=== PATIENT | female | born 1995 | race Caucasian/White ===

== ENCOUNTER 2021-07-23 17:10 | Emergency (ER) | payer OTHER ==
[~2021-07-23] VITALS: Ht 157.5 cm; Wt 116.0 kg
[2021-07-23 17:40] VITALS: BP 124/65
--- NOTE | 2021-07-23 18:16 | PHYS DOC ---
Past History Past Surgical History: Other Additional Past Surgical Histo: sinus, D&C (GREG PIÑA APRN) Alcohol Use: Rarely (GREG PIÑA APRN) General Adult EDM: Chief Complaint: COUGH HPI: HPI: Patient is a 26-year-old female who presents to the emergency department for sore throat that started on Monday. She got tested for COVID-19 on Monday and that was negative. She states that Monday night she started experiencing body aches, cough, fever, shortness of breath and chest wall pain with coughing. She states that the pain is 8 out of 10. Patient reports positive sick exposures at her work. Patient's vital signs are stable and she is in no acute distress. Patient denies any nausea, vomiting, diarrhea, loss of taste or smell. (GREG PIÑA APRN) Review of Systems: Review of Systems: Constitutional: negative unless reported in HPI Eyes: negative unless reported in HPI HENT: negative unless reported in HPI Respiratory: negative unless reported in HPI Cardiovascular: negative unless reported in HPI GI: negative unless reported in HPI : negative unless reported in HPI Musculoskeletal: negative unless reported in HPI Integument: negative unless reported in HPI Neurologic: negative unless reported in HPI Endocrine: negative unless reported in HPI Lymphatic: negative unless reported in HPI Psychiatric: negative unless reported in HPI (GREG PIÑA APRN) Allergies: Allergies: Allergies Coded Allergies Type Severity Reaction Last Updated Verified magnesium citrate Allergy Unknown Hives 07/23/21 Yes (GREG PIÑA APRN) Physical Exam: PE: Constitutional: Well developed, well nourished, no acute distress, non-toxic aj earance. [] HENT: Normocephalic, atraumatic, bilateral external ears normal, oropharynx moist, no oral exudates, nose normal. [] Eyes: PERRL, EOMI, conjunctiva normal, no discharge. [] Neck: Normal range of motion, no stridor Cardiovascular:Heart rate regular rhythm, no murmur, chest wall pain repr oducible with cough [] Lungs & Thorax: Bilateral breath sounds clear to auscultation [] Abdomen: Bowel sounds normal, soft, no tenderness, no masses, obese, no pulsatile masses. [] Skin: Warm, dry, no erythema, no rash. [] Back: Normal range of motion Extremities: No tenderness, no cyanosis, no clubbing, ROM intact, no edema. [] Neurologic: Alert and oriented X 3, normal motor function, normal sensory function, no focal deficits noted. [] Psychologic: Affect normal, judgement normal, mood normal. [] (GREG PIÑA APRN) Current Patient Data: Vital Signs: Vital Signs Date Time Temp Pulse Resp B/P (MAP) Pulse Ox O2 Delivery O2 Flow Rate FiO2 07/23/21 17:40 98.3 96 20 124/65 (84) 100 Room Air (GREG PIÑA APRN) EKG: EKG: [] (GREG PIÑA APRN) Radiology/Procedures: Radiology/Procedures: []PROCEDURE: PORTABLE CHEST 1V EXAM: CHEST ONE VIEW. HISTORY: Shortness of breath. COMPARISON: None. FINDINGS: A frontal view of the chest is obtained. There are no confluent infiltrates. There is no pneumothorax or pleural effusion. The heart is not enlarged. IMPRESSION: 1. No confluent infiltrates. Electronically signed by: Pablo Brody MD (07/23/2021 6:16 PM) [facility] DICTATED AND SIGNED BY: VIKRAM BRODY MD DATE: 07/23/211814 CC: GREG PIÑA APRN; CLARA GOLDMAN ~MTH0 0 (GREG PIÑA APRN) Heart Score: C/O Chest Pain: No Risk Factors: Risk Factors: DM, Current or recent (<one month) smoker, HTN, HLP, family history of CAD, obesity. Risk Scores: Score 0 - 3: 2.5% MACE over next 6 weeks - Discharge Home Score 4 - 6: 20.3% MACE over next 6 weeks - Admit for Clinical Observation Score 7 - 10: 72.7% MACE over next 6 weeks - Early Invasive Strategies (GREG PIÑA APRN) Course & Med Decision Making: Course & Med Decision Making Pertinent Labs and Imaging studies reviewed. (See chart for details) [] Patient presents to the emergency department for multiple complaints including body aches, cough, fever, sore throat, shortness of breath, chest wall pain with coughing. Patient was tested for COVID-19 and influenza. Patient's rapid influenza test was negative. Her rapid COVID test was positive. Chest x- ray performed to rule out pneumonia that was negative. Patient's vital signs are stable and she is in no acute distress, physical exam is reassuring. Patient educated on symptomatic treatment. Patient be discharged home with an albuterol inhaler and cough medication. I discussed with patient all findings and diagnostic testing as well as the need to follow-up with PCP for further evaluation and treatment or return to the ER if any new or worsening symptoms. Strict return precautions were also discussed at length. Patient voiced unde rstanding and agreement with the plan. Patient is hemodynamically stable at the time of disposition. (GREG PIÑA APRN) Course & Med Decision Making Did not see or evaluate patient. Did not discuss patient with [facility] [employer]. Agree with [facility]'s work-up and disposition per note. (MARIAN WALLACE MD) Dragon Disclaimer: Dragon Disclaimer: This electronic medical record was generated, in whole or in part, using a voice recognition dictation system. (GREG PIÑA APRN) Departure Departure: Impression: Primary Impression: COVID-19 Disposition: 01 HOME / SELF CARE / HOMELESS Condition: GOOD Referrals: CLARA GOLDMAN (PCP) Patient Instructions: Cough, Adult Additional Instructions: You were seen in the emergency department for body aches, cough, fever, sore throat, shortness of breath. Your rapid influenza test was negative and your rapid COVID test was positive. Please isolate per CDC guidelines. Your chest x-ray showed no acute findings. Please increase your fluids and rest. For any pain or fevers you can take Tylenol and/or ibuprofen. For any shortness of breath use the albuterol inhaler that you are being prescribed. You are also being discharged home with cough medication. Follow-up with your primary care provider tomorrow regarding your ER visit. Return to the emergency department if you develop shortness of breath, high fevers refractory to treatment, tractable nausea vomiting. You have been tested for or diagnosed with COVID-19. It is an infection caused by a new type of coronavirus. COVID-19 will cause cold-like or mild flu symptoms in most. It can cause more severe symptoms like problems breathing in some. There is no treatment for COVID-19. The body will clear the infection over time. Self-care will help to ease discomfort. Steps to Take: Self-Care Rest as needed. Healthy habits may help you feel better. Steps include: Choose healthy foods including fruits and vegetables. Drink water throughout the day. Get plenty of sleep each night. If you smoke, try to quit. It may ease breathing. Avoid alcohol. Keep Others Healthy The virus can spread to others. Droplets are released every time you sneeze or cough. The droplets can get into the mouth, nose, or eyes of people near you and lead to infection. To lower the chances of spreading COVID-19 to others: Stay at home until your doctor has said it is safe to leave. If you tested positive this will mean staying isolated until both of the following are true: At least 7 days have passed since the start of illness. You are free of fever for at least 72 hours without the use of medicine. During this time: - Avoid public areas, events, or transportation. Do not return to work or school until your doctor has said it is safe to do so. - Call ahead if you need to go to a medical center. Let them know you may have COVID-19. It will help them guide you where to go. They may also ask you to wear a facemask when you come to the office. - If you call for emergency medical services, let them know you may have COVID- 19. While at home: - Try to avoid close contact with others. Stay about 6 feet away. - If possible, spend most of your time in a separate room from others. - Use a face mask if you will be in close contact with others such as sharing a room or vehicle. - Have someone wipe down common surfaces in the home. Use household film and video editor every day on areas like doorknobs, counters, or sinks. - Cough or sneeze into a tissue. Throw the tissue away right after use. If a tissue is not available, cough or sneeze into your elbow. - Wash your hands often. Wash them after sneezing or coughing. Use soap and water and wash for at least 20 seconds. Alcohol based hand lingo cleaner can be used if soap and water is not available. - Do not prepare food for others. Avoid sharing personal items like forks, spoons, or toothbrushes. - Avoid close contact with pets while you are sick. There is no evidence of the virus passing to pets. This is a safety step until more is known about this virus. Isolation can be frustrating. Social interaction can help. Keep in touch with friends and family through phone and tech options. You can still interact with others in your home, just keep a safe distance of about 6 feet. Follow-up: Your doctors office will check in with you to see if there are any changes in your health. You may be asked to keep track of symptoms to share with them. They will also let you know when you are clear to be in public again. Problems to Look Out For: Contact your doctor if your recovery is not going as you expect. Get emergency c are if you have problems such as: - Trouble breathing - Nonstop chest pain or pressure - Changes in awareness, confusion, or problems waking - Lips or face have bluish color - Worsening of symptoms If you think you have an emergency, call for emergency medical services right away. As taken from [facility] Benzonatate (BENZONATATE) 100 Mg Capsule 1 CAP PO TID for cough for 7 Days, #21 CAP 0 Refills Prov: GREG PIÑA APRN 07/23/21 Albuterol Sulfate (PROAIR HFA INHALER) 8.5 Gm Hfa.aer.ad 2 PUFF IH PRN Q4-6HRS PRN for wheezing for 21 Days, #1 INHALER 0 Refills as needed for wheezing Prov: GREG PIÑA APRN 07/23/21 GREG PIÑA APRN Jul 23, 2021 18:16 MARIAN WALLACE MD Jul 23, 2021 19:31
--- NOTE | 2021-07-23 18:18 | RAD ---
EXAM: CHEST ONE VIEW. HISTORY: Shortness of breath. COMPARISON: None. FINDINGS: A frontal view of the chest is obtained. There are no confluent infiltrates. There is no pneumothorax or pleural effusion. The heart is not en larged. IMPRESSION: 1. No confluent infiltrates. Electronically signed by: Pablo Brody MD (07/23/2021 6:16 PM) [facility]
[2021-07-23 19:11] LABS: INFLUENZA A PATIENT NEGATIVE (NEGATIVE); INFLUENZA B PATIENT NEGATIVE (NEGATIVE)
[2021-07-23] MEDS ORDERED: BENZ-8 PO (19:14)
[2021-07-23] MEDS ORDERED: ALBU2.5V8 IH (19:14)
== END 2021-07-23 19:26 | disposition home or self-care (01) ==
LOC: ER 17:10
DX: U07.1 COVID-19 (principal); Z88.8 Allergy status to other drugs, medicaments and biological substances
CPT/HCPCS: 71045; 87428; 99283

== ENCOUNTER 2021-11-17 17:33 | Emergency (ER) | payer OTHER ==
[~2021-11-17] VITALS: Ht 157.5 cm; Wt 112.7 kg
[~2021-11-17 17:33] MED LIST: ALBU2.5V8 IH; BENZ-8 PO
--- NOTE | 2021-11-17 17:49 | PHYS DOC ---
Past History Past Surgical History: Other Additional Past Surgical Histo: sinus, D&C Alcohol Use: Rarely General Adult HPI: HPI: "I got heat exhaustion yesterday.... And dehydrated.... My OB said my sugar was low and I was dehydrated.... Today still not back to normal and have a mild headache..... She told me to go to the nearest ED... To get checked out maybe get some fluids..... I am 17 weeks ..... And this is my third I had 2 previous miscarriages... " Patient is a 26 year old female who presents with multiple complaints, myalgia, arthralgia, malaise, cephalgia, fatigue, and 17 weeks with her third patient was diagnosed yesterday with dehydration, hypoglycemia and hypertension by her OB in [facility]. 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 Pt. follow s with [facility] for [facility]. No recent travel. No sick ill contacts. Is taking vitamins. No vaginal discharge. No bleeding. No trauma. Did have COVID in July and has not had booster since then. She did get flu vaccination. No history of bad food intake. Has had a hard time maintaining p.o. intake because of nausea associated with . Review of Systems: Review of Systems: Constitutional: Feels hot Eyes: Denies change in visual acuity HENT: Denies nasal congestion or sore throat Respiratory: Denies cough or shortness of breath Cardiovascular: Denies chest pain or edema GI: Complains of nausea,. Denies vomiting, bloody stools or diarrhea : Denies dysuria Musculoskeletal: Complains of myalgia, arthralgia, malaise, fatigue, Integument: Denies rash Neurologic: Mild frontal headache headache. Denies focal weakness or sensory changes Endocrine: Denies polyuria or polydipsia Lymphatic: Denies swollen glands Psychiatric: Anxious Family History: Family History: Noncontributory to presentation Current Medications: Current Meds: See nursing for home meds Allergies: Allergies: Allergies Coded Allergies Type Severity Reaction Last Updated Verified magnesium citrate Allergy Unknown Hives 07/23/21 Yes Physical Exam: PE: Constitutional: Mild acute distress, non-toxic appearance. [] HENT: Normocephalic, atraumatic, bilateral external ears normal, oropharynx dry, no oral exudates, nose normal. [] Eyes: PERRLA, EOMI, conjunctiva normal, no discharge. [No field deficits Neck: Normal range of motion, no tenderness, supple, no stridor. [] Cardiovascular: Tacky heart rate regular rhythm, no murmur [] Lungs & Thorax: Bilateral breath sounds equal apex on auscultation [] Abdomen: Bowel sounds normal, soft, no tenderness, no masses, no pulsatile masses. Obese. heart rate 150's Skin: Warm, dry, no erythema, no rash. [] Back: No tenderness, no CVA tenderness. [] Extremities: No tenderness, no cyanosis, no clubbing, ROM intact, no edema. No cording appreciated Neurologic: Alert and oriented X 3, n moves extremities on request, has distal sensory,, no focal deficits noted. DTRs +2 patella Psychologic: Affect anxious, judgement normal, mood normal. [] EKG: EKG: My interpretation EKG shows a sinus rhythm at 73 bpm. No acute morphology. Time EKG is 1818 hrs. [] Radiology/Procedures: Radiology/Procedures: [] Heart Score: C/O Chest Pain: N/A Risk Factors: Risk Factors: DM, Current or recent (<one month) smoker, HTN, HLP, family history of CAD, obesity. Risk Scores: Score 0 - 3: 2.5% MACE over next 6 weeks - Discharge Home Score 4 - 6: 20.3% MACE over next 6 weeks - Admit for Clinical Observation Score 7 - 10: 72.7% MACE over next 6 weeks - Early Invasive Strategies Course & Med Decision Making: Course & Med Decision Making Pertinent Labs and Imaging studies reviewed. (See chart for details)\\ Pt. requesting discharge after liter of LR. Pt. has Zofran at home for nausea. Patient encouraged to follow the hospital where she plans to deliver if she has further problems. Patient recommended be on a clear fluid diet only for the next 24 hours. Avoid solids. Avoid milk products. Push fluids such as apple juice, grape juice, Pedialyte, Gatorade, Jell-O, popsicles, etc. Note patient did not receive all her labs and blood type and Rh not collected. Patient still requesting discharge. Patient believes she is a positive but this is not currently confirmed. Impression: 1. Hx. Heat exhaustion- yesterday 2. Dehydration 3. Gravid times3,- 2 miscarriages and current [] Dragon Disclaimer: Dragon Disclaimer: This electronic medical record was generated, in whole or in part, using a voice recognition dictation system. Departure Departure: Referrals: CLARA GOLDMAN (PCP) Facundo Disclaimer This chart was dictated in whole or in part using Voice Recognition software in a busy, high-work load, and often noisy Emergency Department environment. It may contain unintended and wholly unrecognized errors or omissions. QUETA LINTON MD November 17, 2021 17:49
[2021-11-17] MEDS ORDERED: oxyCODONE/APAP 5/325 1 TAB TABLET PO ONE (18:15)
[2021-11-17] MEDS ORDERED: ONDANSETRON PF 4 MG/2 ML VIAL. IVP ONE (18:15)
[2021-11-17] MEDS ORDERED: IV RINGERS SOLUTION,LACTATED 1,000 ML IV SCH (18:15)
[2021-11-17 18:23] LABS: U PREG PATIENT POSITIVE (NEG)
--- NOTE | 2021-11-17 18:23 | EKG ---
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
[2021-11-17 18:31] LABS: BARBITURATES NEG (NEG); BENZODIAZEPINES NEG (NEG); CANNABINOIDS NEG (NEG); COCAINE NEG (NEG); METHADONE NEG (NEG); OPIATES NEG (NEG); PHENCYCLIDINE NEG (NEG)
[2021-11-17 18:32] LABS: AMPHETAMINE/METHAMPHETAMINE NEG (NEG)
[2021-11-17 18:33] LABS: BACTERIA,URINE FEW /HPF (0-FEW); CLARITY,URINE HAZY; COLOR,URINE YELLOW; GLUCOSE,URINE NEG (NEG); NITRITE,URINE NEG (NEG); RBC,URINE 0 /HPF (0-2); SQUAMOUS EPITHELIAL CELL,UR MOD /LPF; UROBILINOGEN,URINE 0.2 mg/dL (0.2 mg/dL)
[2021-11-17 18:49] LABS: BASO % 0 % (0-3); EOS % 0 % (0-3); HEMATOCRIT 36.2 % (36.0-47.0); LYMPH % 22 % (24-48); MEAN CORPUSCULAR HEMOGLOBIN 28 pg (25-35); MEAN CORPUSCULAR HGB CONC 33 g/dL (31-37); MEAN CORPUSCULAR VOLUME 86 fL (79-100); MONO # 0.6 x10^3/uL (0.0-1.1); MONO % 7 % (0-9); NEUT # 6.2 x10^3uL (1.8-7.7); NEUT % 71 % (31-73); PLATELET COUNT 217 x10^3/uL (140-400); RED BLOOD COUNT 4.22 x10^6/uL (3.50-5.40); RED CELL DISTRIBUTION WIDTH 13.1 % (11.5-14.5); WHITE BLOOD COUNT 8.8 x10^3/uL (4.0-11.0)
[2021-11-17 18:55] LABS: ANION GAP 10 (6-14); BLOOD UREA NITROGEN 9 mg/dL (7-20); CARBON DIOXIDE 24 mmol/L (21-32); CHLORIDE 103 mmol/L (98-107); CREATININE 0.6 mg/dL (0.6-1.0); GFR 121.8; GLUCOSE 79 mg/dL (70-99); POTASSIUM 4.1 mmol/L (3.5-5.1); SODIUM 137 mmol/L (136-145)
[2021-11-17 19:08] LABS: ALBUMIN 3.1 g/dL (3.4-5.0); ALK PHOS 50 U/L (46-116); ALT (SGPT) 25 U/L (14-59); AST (SGOT) 9 U/L (15-37); LIPASE 75 U/L (73-393); MAGNESIUM 1.9 mg/dL (1.8-2.4); TOTAL BILIRUBIN 0.2 mg/dL (0.2-1.0)
[2021-11-17 19:09] LABS: DIRECT BILIRUBIN < 0.1 mg/dL (0.0-0.2)
[2021-11-17 19:28] LABS: INFLUENZA A PATIENT NEGATIVE (NEGATIVE); INFLUENZA B PATIENT NEGATIVE (NEGATIVE)
[2021-11-17 21:25] VITALS: BP 138/91
== END 2021-11-17 21:30 | disposition home or self-care (01) ==
LOC: ER 17:33
DX: O99.282 Endocrine, nutritional and metabolic diseases complicating pregnancy, second trimester (principal); E86.0 Dehydration; Z3A.17 17 weeks gestation of pregnancy; Z20.822 Contact with and (suspected) exposure to COVID-19; Z88.8 Allergy status to other drugs, medicaments and biological substances
CPT/HCPCS: 36415; 80048; 80076; 80307; 81001; 81025; 82550; 83690; 83735; 83880; 84443; 84484; 84702; 85025; 85610; 87428; 93005; 96361; 96374; 99283; J2405; J7120